=== PATIENT | male | born 1940 | race Asian ===

== ENCOUNTER 2016-05-23 10:19 | Outpatient (CLI) | payer OTHER ==
[~2016-05-23 10:19] MED LIST: HUMULIN 70/30 SC; LANTUS100 MG/ML SC; LEVEMIR INJ; LEVEMIR SC; LISI10TA11 PO; [UNRECOGNIZED DRUG - CODE] XX; [UNRECOGNIZED DRUG - SUPPLY] XX; [UNRECOGNIZED DRUG - SUPPLY] XX
[2016-05-23 11:57] LABS: POTASSIUM 4.5 mmol/L (3.6-5.2); SODIUM 136 mmol/L (136-145)
== END 2016-05-23 19:22 | disposition home or self-care (01) ==
LOC: LABW 10:19
PROVIDERS: Family Medicine
DX: E10.65 Type 1 diabetes mellitus with hyperglycemia (principal); I10 Essential (primary) hypertension; E55.9 Vitamin D deficiency, unspecified
CPT/HCPCS: 36415; 80053; 80061; 81000; 82043; 82570; 82652; 83036; 83735; 84439; 84443; 84550

== ENCOUNTER 2017-01-02 09:15 | Outpatient (CLI) | payer OTHER ==
[2017-01-02 09:40] LABS: PLATELET COUNT 281 K/uL (142-355)
[2017-01-02 10:15] LABS: POTASSIUM 4.5 mmol/L (3.6-5.2)
== END 2017-01-02 19:03 | disposition home or self-care (01) ==
LOC: LABW 09:15
PROVIDERS: Podiatrist
DX: B35.1 Tinea unguium (principal); E10.65 Type 1 diabetes mellitus with hyperglycemia; I10 Essential (primary) hypertension; E78.4 Other hyperlipidemia; J44.9 Chronic obstructive pulmonary disease, unspecified; E55.9 Vitamin D deficiency, unspecified; Z12.5 Encounter for screening for malignant neoplasm of prostate
CPT/HCPCS: 36415; 80053; 80061; 81000; 82043; 82306; 82570; 83036; 83735; 84153; 84439; 84443; 84550; 85027

== ENCOUNTER 2017-02-05 09:17 | Outpatient (CLI) | payer OTHER | END 2017-02-05 10:20 | disposition home or self-care (01) | LOC: LABW 09:17 | DX: B35.1 Tinea unguium (principal) | CPT/HCPCS: 36415; 84450; 84460 ==

== ENCOUNTER 2017-04-24 10:12 | Outpatient (CLI) | payer OTHER | END 2017-04-24 23:03 | disposition home or self-care (01) | LOC: LABW 10:12 | DX: B35.1 Tinea unguium (principal) | CPT/HCPCS: 36415; 84450; 84460 ==

== ENCOUNTER → 2019-09-22 | Emergency (ER) | payer OTHER ==
[~2019-09-22] VITALS: Ht 165.1 cm; Wt 56.7 kg
== END ==
LOC: ED 19:47
PROC: 5A12012 Performance of Cardiac Output, Single, Manual (ICD-10-PCS; principal; 2019-09-22)
DX: I46.9 Cardiac arrest, cause unspecified (principal)
CPT/HCPCS: 92950; 96360; 96375; 96376; 99285; J0171; J3490